=== PATIENT | male | born 1955 | race Caucasian/White ===

== ENCOUNTER 2022-10-19 13:15 | Outpatient (CLI) | payer MEDICARE | END 2022-10-19 13:16 | disposition home or self-care (01) | LOC: BICCT 13:15 | PROVIDERS: ATTEND Family Medicine | DX: Z12.2 Encounter for screening for malignant neoplasm of respiratory organs (principal); F17.210 Nicotine dependence, cigarettes, uncomplicated; R06.00 Dyspnea, unspecified; R91.8 Other nonspecific abnormal finding of lung field | CPT/HCPCS: 71271 ==